=== PATIENT | female | born 1990 | race Caucasian/White ===

== ENCOUNTER 2021-04-26 06:44 | Inpatient (IN) ==
[2021-04-26] MEDS ORDERED: Lactated Ringers 1000 ml BAG 1,000 ML IV ONE ×2 (07:33→08:34)
[2021-04-26] MEDS ORDERED: Buffered Lidocaine 1% SYRIN 1 ml INTRADERM ONE (07:33)
[2021-04-26 07:53] LABS: ABS Lymphocytes 2.5 10^3/ul (1.0-4.8); ABS Monocytes 0.7 10^3/ul (0-0.8); ABS Neutrophils 13.1 10^3/ul (1.5-7.7); Eosinophil % 0.2 %; Hematocrit 41 % (35-47); Hemoglobin 14.2 g/dL (12.0-16.0); Lymphocyte % 15.2 %; Mean Corpuscular HGB Conc 35 g/dL (31-36); Mean Corpuscular Hemoglobin 32 pg (27-31); Mean Corpuscular Volume 92 fL (80-97); Mean Platelet Volume 8.6 fL (7.4-10.4); Platelet Count 320 10^3/uL (150-450); Red Cell Distribution Width 14 % (10-15); White Blood Count 16.3 10^3/uL (3.5-10.8)
[2021-04-26] MEDS ORDERED: OBEPIDURAL 250 ML EPIDURAL ONE (07:55)
[2021-04-26] MEDS ORDERED: Lactated Ringers 1000 ml BAG 1,000 ML IV SCH ×2 (08:00→22:00)
[2021-04-26 08:15] LABS: Rapid COVID-19 Molecular Undetected (Undetected)
[2021-04-26] MEDS ORDERED: Lactated Ringers 1000 ml BAG 500 ML IV PRN ×2 (08:34)
[2021-04-26] MEDS ORDERED: Sodium Citrate/Citric Acid LIQ 15 ML UDC PO PRN (08:34)
[2021-04-26] MEDS ORDERED: Phenylephrine 40 mcg/mL 10mL (400mcg) SYRINGE IV PUSH PRN ×2 (08:34)
[2021-04-26] MEDS ORDERED: OBEPIDURAL 250 ML EPIDURAL SCH (09:00)
[2021-04-26 09:02] LABS: Urine Appearance Cloudy; Urine Bilirubin Negative (Negative); Urine Blood Negative (Negative); Urine Color Amber; Urine Glucose Negative (Negative); Urine Ketones 2+ (Negative); Urine Nitrite Negative (Negative); Urine Protein 1+(30 mg/dL) (Negative); Urine Specific Gravity 1.018 (1.002-1.030); Urine Urobilinogen Negative (Negative)
[2021-04-26 09:07] LABS: Urine Bacteria Absent (Absent); Urine Red Blood Cell Trace(0-2/hpf) (Absent); Urine Squamous Epithelial Cell Present (Absent); Urine White Blood Cell Trace(0-5/hpf) (Absent)
[2021-04-26 09:16] LABS: Urine Benzodiazepine Screen None Detected (None Detect); Urine Cannabinoids Screen None Detected (None Detect); Urine Opiates Screen None Detected (None Detect)
[2021-04-26] MEDS ORDERED: Bupivacaine 0.25% SDV PF 10 ML VIAL INJ ONE (15:34)
[2021-04-26] MEDS: Lactated Ringers 1000 ml BAG 1,000 ML IV SCH ×2 (15:59→17:43)
[2021-04-26] MEDS ORDERED: Oxytocin in LR 20 UNITS/1,000 ML BAG IVPB ONE (19:13)
[2021-04-26] MEDS ORDERED: Oxytocin in LR 20 UNITS/1,000 ML BAG IVPB SCH (20:38)
[2021-04-26] MEDS ORDERED: Methylergonovine 0.2 mg AMPULE 1 ml AMP IM ONE (20:40)
[2021-04-26] MEDS: Witch Hazel PAD JAR TOPICAL PRN (23:08)
[2021-04-26] MEDS: Dibucaine 1% OINT 28.35 GM TUBE PR PRN (23:08)
[2021-04-27] MEDS ORDERED: Lidocaine 1% VIAL 10 MG/ML VIAL ONE (01:11)
[2021-04-27] MEDS ORDERED: Methylergonovine 0.2 mg AMPULE 1 ml AMP ONE (01:17)
[2021-04-27 07:56] LABS: ABS Monocytes 1.5 10^3/ul (0-0.8); ABS Neutrophils 16.9 10^3/ul (1.5-7.7); Eosinophil % 0.2 %; Hematocrit 32 % (35-47); Hemoglobin 10.7 g/dL (12.0-16.0); Mean Corpuscular HGB Conc 34 g/dL (31-36); Mean Corpuscular Hemoglobin 32 pg (27-31); Mean Corpuscular Volume 95 fL (80-97); Mean Platelet Volume 8.7 fL (7.4-10.4); Platelet Count 252 10^3/uL (150-450); Red Blood Count 3.37 10^6 /uL (3.70-4.87); Red Cell Distribution Width 14 % (10-15); White Blood Count 21.4 10^3/uL (3.5-10.8)
[2021-04-27] MEDS: Dibucaine 1% OINT 28.35 GM TUBE PR PRN (20:02)
[2021-04-28] MEDS ORDERED: Flu vaccine *QUAD* 2021-22* 0.5 ML SYRINGE IM ONE (09:00)
[2021-04-28] MEDS: Witch Hazel PAD JAR TOPICAL PRN (10:49)
[2021-04-28 20:25] VITALS: BP 113/74
== END 2021-04-28 23:00 | disposition home or self-care (01) | DRG 768 ==
LOC: MCHOBOUT 06:44 → MCHOB 07:06
PROVIDERS: ADMIT Advanced Practice Midwife; ATTEND Advanced Practice Midwife

== ENCOUNTER 2024-02-10 14:52 | Inpatient (IN) ==
[2024-02-10] MEDS ORDERED: Nalbuphine 10 MG/ML 1 ML VIAL IV PRN (15:13)
[2024-02-10] MEDS ORDERED: Lidocaine 1% VIAL 10 MG/ML 30 ML VIAL INJ PRN (15:13)
[2024-02-10] MEDS: Lactated Ringers 1000 ml BAG 1,000 ML IV SCH (16:20)
[2024-02-10] MEDS: Oxytocin in LR 20,000 MILLI.UNIT/1,000 ML BAG IV SCH (16:20)
[2024-02-10 16:27] LABS: ABS Lymphocytes 2.3 10^3/uL (1.0-4.8); ABS Monocytes 0.7 10^3/uL (0.0-0.9); ABS Neutrophils 6.8 10^3/uL (1.5-7.6); ABS Nucleated RBC 0.01 10^3/ul; Eosinophil % 0.4 %; Hematocrit 34.1 % (35-45); Hemoglobin 11.6 g/dL (11.5-14.3); Lymphocyte % 23.2 %; Mean Corpuscular Hemoglobin 29.2 pg (27-33); Mean Corpuscular Hgb Conc 34.1 g/dL (31-36); Mean Corpuscular Volume 85.7 fL (80-97); Mean Platelet Volume 8.9 fL (7.5-11.2); Nucleated Red Blood Cells % 0.1 %/100WBC (0.0-0.8); Platelet Count 302 10^3/uL (150-450); Red Blood Count 3.98 10^6/uL (3.63-4.92); White Blood Count 9.9 10^3/uL (3.8-11.8)
[2024-02-10 17:28] LABS: Urine Benzodiazepine Screen None Detected (None Detect); Urine Cannabinoids Screen None Detected (None Detect); Urine Opiates Screen None Detected (None Detect)
[2024-02-10 17:38] LABS: Hepatitis B Surface Antigen Nonreactive (Nonreactive)
[2024-02-10] MEDS: OBEPIDURAL (200 ML) 200 ML EPIDURAL SCH (19:40)
[2024-02-10] MEDS ORDERED: Phenylephrine 40 mcg/mL 10mL (400mcg) SYRINGE IV PUSH PRN ×2 (19:47)
[2024-02-10] MEDS ORDERED: Sodium Citrate/Citric Acid LIQ 15 ML UDC PO PRN (19:47)
[2024-02-10 20:43] LABS: Urine Appearance Clear; Urine Bilirubin Negative (Negative); Urine Blood 1+ (Negative); Urine Color Light-Yellow; Urine Glucose Negative (Negative); Urine Ketones Negative (Negative); Urine Nitrite Negative (Negative); Urine Protein Negative (Negative); Urine Specific Gravity 1.014 (1.002-1.030); Urine Urobilinogen Negative (Negative)
[2024-02-10 21:08] LABS: Urine Bacteria 1+ /HPF (Absent); Urine Red Blood Cell 3+(>10/hpf) /HPF (0-Trace); Urine Squamous Epithelial Cell Present /HPF (Absent); Urine White Blood Cell Trace(0-5/hpf) /HPF (0-Trace)
[2024-02-10] MEDS: Calcium Carb (TUMS) 500 mg CHEW TAB PO PRN (23:19)
[2024-02-10] MEDS: Ondansetron 4 mg VIAL 2 MG/ML 2 ml VIAL IV PRN (23:33)
[2024-02-11] MEDS ORDERED: Glycerin ADULT 2.4 gm SUPP PR PRN (02:36)
[2024-02-11] MEDS ORDERED: Lactated Ringers 1000 ml BAG 1,000 ML IV SCH (03:00)
[2024-02-11] MEDS: Dibucaine 1% OINT 28.35 GM TUBE PR PRN (03:05)
[2024-02-11] MEDS: Witch Hazel PAD JAR TOPICAL PRN (03:05)
[2024-02-11] MEDS: OBEPIDURAL (200 ML) 200 ML EPIDURAL ONE (06:24)
[2024-02-11] MEDS: Lactated Ringers 1000 ml BAG 1,000 ML IV ONE ×2 (19:59→20:04)
[2024-02-11] MEDS: Lidocaine/Epinephrin 1.5%/200 5 ML AMP INJ ONE (19:59)
[2024-02-11] MEDS: Oxytocin in LR 20,000 MILLI.UNIT/1,000 ML BAG IV SCH (20:00)
[2024-02-11] MEDS: Lidocaine 1% VIAL 10 MG/ML 30 ML VIAL ONE (20:00)
[2024-02-11] MEDS: Buffered Lidocaine 1% SYRIN 1 ml INTRADERM ONE (20:03)
[2024-02-11] MEDS: Lactated Ringers 1000 ml BAG 1,000 ML IV SCH (20:04)
[2024-02-11] MEDS: Lidocaine 1.5% EPI 1:200,000 30 ML SDV ONE (20:04)
[2024-02-12 06:55] LABS: ABS Eosinophils 0.1 10^3/uL (0.0-0.5); ABS Monocytes 0.6 10^3/uL (0.0-0.9); ABS Neutrophils 5.2 10^3/uL (1.5-7.6); ABS Nucleated RBC 0.01 10^3/ul; Eosinophil % 0.7 %; Hematocrit 29.3 % (35-45); Hemoglobin 9.7 g/dL (11.5-14.3); Lymphocyte % 33.6 %; Mean Corpuscular Hemoglobin 28.8 pg (27-33); Mean Corpuscular Hgb Conc 33.3 g/dL (31-36); Mean Corpuscular Volume 86.5 fL (80-97); Mean Platelet Volume 8.6 fL (7.5-11.2); Nucleated Red Blood Cells % 0.1 %/100WBC (0.0-0.8); Platelet Count 234 10^3/uL (150-450); Red Blood Count 3.39 10^6/uL (3.63-4.92); Red Cell Distribution Width 14.1 % (12-17); White Blood Count 8.9 10^3/uL (3.8-11.8)
[2024-02-12 08:28] VITALS: BP 112/66
== END 2024-02-12 11:26 | disposition home or self-care (01) | DRG 806 ==
LOC: MCHOBOUT 14:52 → MCHOB 15:07
PROVIDERS: ADMIT Advanced Practice Midwife; ATTEND Advanced Practice Midwife